=== PATIENT | female | born 1950 | race Caucasian/White ===

== ENCOUNTER 2023-12-24 15:20 | Emergency (ER) | payer MEDICARE ==
[2023-12-24 15:26] VITALS: BP 150/72; O2SAT 99
--- NOTE | 2023-12-24 15:32 | ED Physician Documentation ---
PD HPI SKIN - Stated complaint Stated Complaint: LT HAND LAC - Chief complaint Chief Complaint: Laceration - Additional information Additional information: 73-year-old female with history of type 2 diabetes, advanced dementia presents emergency department for superficial abrasion to her left hand in between her third and fourth knuckle. Patient does not remember what happened her daughter is here visiting and just saw a small amount of bleeding on her hand and wanted her to bring her to the ER for further evaluation. PD PAST MEDICAL HISTORY - Past Medical History Past Medical History: Yes Neuro: Dementia - Allergies Allergies/Adverse Reactions: Allergies Allergy/AdvReac Type Severity Reaction Status Date / Time No Known Drug Allergies Allergy Verified 12/24/23 15:24 - Social History Does the pt smoke?: No Smoking Status: Never smoker Does the pt drink ETOH?: No Does the pt have substance abuse?: No - Immunizations Immunizations are current?: Yes PD ED PE NORMAL - General General: No acute distress, Well developed/nourished, Other (Dementia) - Derm Derm: Other (left hand superficial skin tear) Results - Vitals Vitals: Vital Signs - 24 hr 12/24/23 15:24 Temperature 36.5 C Heart Rate 78 Respiratory 16 Rate Blood Pressure 150/72 H O2 Saturation 99 Oxygen O2 Source Room air PD Medical Decision Making - ED course ED course: 73-year-old female presents emergency department for left hand superficial skin tear. Daughter was worried because she has a wound on her foot that is taken a long time to heal but she was reassured that this is a very very small superficial skin tear that will not require any intervention. They are told to keep it clean and to place a thin layer of bacitracin over the wound and keep it covered at all times to expedite healing and recovery. They were taught signs symptoms of infection and how to care for the wound and told to follow-up primary care provider as needed tetanus shot up-to-date. Nursing was able to provide a dressing and bacitracin over the wound all questions answered patient is safe for discharge. Departure - Departure Disposition: 01 Home, Self Care Clinical Impression: Skin tear Instructions: ED Laceration Hand Comments: Thank you for trusting us with your care. You have a very superficial skin tear on your left knuckle keep it covered at all times and moist with something such as bacitracin to help with wound healing. Please watch for signs and symptoms of infection which include redness, swelling, drainage that is yellow or green or fevers and chills. Please present back to the ER if you are starting to notice any of the symptoms and follow-up with primary care provider as needed. Forms: PCP List Discharge Date/Time: 12/24/23 15:49
[2023-12-24] MEDS: BACITRACIN ZINC OINT 1 PACKET TOP STA (15:44)
== END 2023-12-24 15:49 | disposition home or self-care (01) ==
LOC: ED 15:20
DX: S61.412A Laceration without foreign body of left hand, initial encounter (principal); X58.XXXA Exposure to other specified factors, initial encounter
CPT/HCPCS: 99282; 99283; A9270